=== PATIENT | female | born 2000 | race Caucasian/White ===

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

== ENCOUNTER → 2018-01-05 | Outpatient (CLI) | payer MEDICAID ==
[~2018-01-05] MED LIST changes: +CEPH-507 PO; +NYSTATIN VG
--- NOTE | 2018-01-05 19:42 | Diagnostic Imaging Report ---
PROCEDURE: US OB SINGLE FETUS <14 WKS. TECHNIQUE: Multiple real-time grayscale images were obtained over the gravid uterus in various projections. INDICATION: Uncertain dates. FINDINGS: The previous OB ultrasound exam of 12/20/2017 noted a single live intrauterine of approximately 10 weeks gestation. On this exam, the fetus is again visualized. The fetus is in variable presentation. heart motion was noted, and a rate of 155 BPM was recorded. The crown-rump length suggests the estimated gestational age is 11 weeks 2 days which is approximately 1 week shorter from the expected gestational age by the first exam. There are no obvious abnormalities identified. The amniotic fluid volume is within normal limits. At this time, the placenta seems to be developing anteriorly. The ovaries were not identified. IMPRESSION: 1. There is a single live intrauterine of approximately 12 weeks 2 days gestation by first exam. The EDC remains July 18, 2017. 2. There were no obvious abnormalities identified. If a more sensitive evaluation of the anatomy is desired, however, then a short-term (6-8 week) followup ultrasound exam should be obtained. Dictated by: Dictated on workstation # [id number]
== END ==
LOC: RAD 12:42
PROVIDERS: ATTEND Family Medicine
DX: Z34.00 Encounter for supervision of normal first pregnancy, unspecified trimester (principal); Z3A.12 12 weeks gestation of pregnancy
CPT/HCPCS: 76801

== ENCOUNTER 2018-07-13 14:59 | Inpatient (IN) | payer MEDICAID ==
[~2018-07-13] VITALS: Ht 175.3 cm; Wt 127.6 kg
[2018-07-13] VITALS (28 sets, daily range): BP systolic 127–170; BP diastolic 66–93
--- NOTE | 2018-07-13 15:04 | NUR ---
PATI BURNETTE admitted to room 3320-1, with an admitting diagnosis of gestational HTN and edema, on 07/13/[address] yony via private vehicle, accompanied by family .PATI BURNETTE introduced to surroundings, call light, bed controls, phone, TV, temperature control, lights, meal times, smoking policy, visitor policy, side rail policy, bathrooms and showers. Patient Rights given to patient in the handbook. PATI BURNETTE verbalizes understanding that [facility] is not responsible for the loss or damage to any personal effects or valuables that are kept in the patients posession during their hospitalization. The following Patient Care Plans were discussed with the patient: Discharge Planning, outpatient protocol, and pain management. PATI BURNETTE verbalizes understanding of Interdisciplinary Patient Education. Patient and/or family were informed about the Rapid Response Team and its purpose.
[2018-07-13] MEDS ORDERED: LACTATED RINGERS 1,000 ML IV SCH (15:37)
[2018-07-13] MEDS ORDERED: AMPICILLIN FOR IV USE 2,000 MG in WATER (STERILE) FOR INJECTION 14.8 ML IV SCH (15:37)
[2018-07-13] MEDS ORDERED: MISOPROSTOL 100 MCG (CYTOTEC) TAB PO NR (15:45)
[2018-07-13] MEDS ORDERED: TERBUTALINE INJ 1 MG/ML (BRETHINE) AMP SC PRN (15:45)
[2018-07-13] MEDS ORDERED: MINERAL OIL CONCENTRATE 99.9% 15 ML UDC TOP PRN (15:45)
[2018-07-13 16:21] LABS: BASOPHILS % (AUTO) 0 % (0-10); EOSINOPHILS # (AUTO) 0.1 10^3/uL (0.0-0.3); EOSINOPHILS % (AUTO) 1 % (0-10); HEMATOCRIT 35 % (35-52); HEMOGLOBIN 11.8 G/DL (11.5-16.0); LYMPHOCYTES # (AUTO) 1.6 X 10^3 (1.0-4.0); LYMPHOCYTES % (AUTO) 17 % (12-44); MEAN CORPUSCULAR HEMOGLOBIN 31 PG (25-34); MEAN CORPUSCULAR HGB CONC 34 G/DL (32-36); MEAN CORPUSCULAR VOLUME 90 FL (80-99); MEAN PLATELET VOLUME 13.7 FL (7.4-10.4); MONOCYTES # (AUTO) 0.7 X 10^3 (0.0-1.0); MONOCYTES % (AUTO) 7 % (0-12); NEUTROPHILS # (AUTO) 6.9 X 10^3 (1.8-7.8); NEUTROPHILS % (AUTO) 75 % (42-75); PLATELET COUNT 133 10^3/uL (130-400); RED CELL DISTRIBUTION WIDTH 13.5 % (10.0-14.5); WHITE BLOOD COUNT 9.3 10^3/uL (4.3-11.0)
[2018-07-13 16:39] LABS: ALANINE AMINOTRANSFERASE 9 U/L (0-55); ALBUMIN 3.5 GM/DL (3.2-4.5); ALKALINE PHOSPHATASE 186 U/L (40-136); BILIRUBIN,TOTAL 0.4 MG/DL (0.1-1.0); BUN/CREATININE RATIO 9; CALCIUM 9.5 MG/DL (8.5-10.1); CARBON DIOXIDE 21 MMOL/L (21-32); CHLORIDE 107 MMOL/L (98-107); GFR ESTIMATED > 60; GLUCOSE 66 MG/DL (70-105); POTASSIUM 3.9 MMOL/L (3.6-5.0); SODIUM 137 MMOL/L (135-145); URIC ACID 5.9 MG/DL (2.6-7.2)
--- NOTE | 2018-07-13 17:06 | NUR ---
DR MARIE NOTIFIED OF PATIENT CURRENT CERVICAL exam and fhr/contraction pattern. new orders received.
[2018-07-13] MEDS: D5 LR IV SOLUTION 1,000 ML IV SCH (17:12)
--- NOTE | 2018-07-13 18:20 | NUR ---
dr matthew notified of recent cervical exam. new orders received.
[2018-07-13] MEDS ORDERED: OXYTOCIN/NORMAL SALINE 500 ML IV SCH ×2 (18:34→18:36)
[2018-07-13] MEDS ORDERED: SUFENTA 0.6MCG/ML BUPIVA 0.125 100 ML ONE (19:21)
[2018-07-13] MEDS ORDERED: MISOPROSTOL 100 MCG (CYTOTEC) TAB PO SCH (19:45)
[2018-07-13] MEDS ORDERED: fentaNYL INJECTION 100 MCG/2 ML AMP ONE (19:51)
[2018-07-13] MEDS: EPIDURAL (SUFENTA 0.6MCG/ML BUPIVA 0.125%) 100 ML BAG EPI PRN (20:10)
[2018-07-13] MEDS ORDERED: LACTATED RINGERS 1,000 ML IV ONE ×2 (20:14)
[2018-07-13] MEDS ORDERED: BUPIVACAINE 0.25% 30 ML (SENSORCAINE) VIAL ONE (20:14)
[2018-07-13] MEDS ORDERED: LIDOCAINE PF 2% 5 ML (XYLOCAINE) VIAL ONE (20:14)
[2018-07-13] MEDS ORDERED: NALOXONE 0.4 MG/ML 1 ML (NARCAN) VIAL IV PRN (20:15)
[2018-07-13] MEDS ORDERED: ONDANSETRON 4 MG/2 ML (SDV) Z0FRAN IV PRN (20:15)
[2018-07-13] MEDS: AMPICILLIN FOR IV USE 1,000 MG in WATER (STERILE) FOR INJECTION 7.4 ML IV SCH (21:31)
[2018-07-13] MEDS ORDERED: CATHETER FLUSH 10 ML SYR IV SCH (22:00)
[2018-07-14] VITALS (51 sets, daily range): BP systolic 108–172; BP diastolic 61–120
[2018-07-14] MEDS: D5 LR IV SOLUTION 1,000 ML IV SCH ×2 (01:30→08:45)
[2018-07-14] MEDS: AMPICILLIN FOR IV USE 1,000 MG in WATER (STERILE) FOR INJECTION 7.4 ML IV SCH ×2 (01:52→06:06)
[2018-07-14] MEDS: EPIDURAL (SUFENTA 0.6MCG/ML BUPIVA 0.125%) 100 ML BAG EPI PRN (03:30)
--- NOTE | 2018-07-14 08:30 | History & Physical-OB ---
OB - Chief Complaint & HPI Date/Time Date of Admission: Date of Admission: July 13, 2018 at 14:59 Date seen by a Provider: July 14, 2018 Time Seen by a Provider: 08:24 Chief Complaint/History OB-Reason for Admission/Chief: Induction of Labor (Preeclampsia) Hx : 1 Expected Date of Delivery: Jul 18, 2018 Gestational Age in Weeks: 39 Gestational Age in Days: 3 Indication for induction: medical complication (Preeclampsia) History of Labs A+, Ab neg Rub Imm HIV/HepB/RPR NR Normal 1 hr GTT GBS Pos Allergies and Home Medications Allergies Coded Allergies: morphine (Unverified Allergy, Intermediate, HIVES, 12/04/16) PT RECEIVED 5MG MORPHINE FOR PAIN AND DEVELOPED HIVES ABOVE IV SITE. Patient Home Medication List Home Medication List Reviewed: Yes OB - History Hx of Present Care: Yes Ultrasounds: Normal mid trimester US Obstetrical Complications: Other (Preeclampsia in the 39th week) Medical Complications: None Obstetrical History Hx : 1 Delivery History Hx Blood Disorders: No Adverse Rxn to Tranfusion: No (N/A) Patient Past Medical History none Social History/Family History HIV/AIDS: No Recent Infectious Disease Expo: No Sexually Transmitted Disease: No Alcohol Use: Denies Use Recreational Drug Use: No Immunizations Tetanus Booster (TDap): Less than 5yrs (06/08/18) Rubella: immune RPR/VDRL: Negative GBS Status: Positive HBsAG: Negative OB - Admission Exam Physical Exam Vitals: Vital Signs 07/14/18 07/14/18 07/14/18 03:15 06:45 07:00 Temp 98.1 Pulse 73 Resp 18 B/P (MAP) 136/78 (97) Pulse Ox 95 O2 Delivery Room Air HEENT: NCAT Heart: Rhythm Normal Lungs: Clear Abdomen: Gravid Extremities: Normal Reflexes: Normal Cervical Dilatation: 7cm Effacement: 100% Station: 0 Membranes: Ruptured Amniotic Fluid: Clear Heart Rate: 130's Accelerations: Accelerations Present Decelerations: No Decelerations Contractions on Admission: < 5 Minutes Apart Intensity: Moderate Mendez Scoring Tool (Modified) Dilation (cm): 3-4cm (2) Effacement (%): 51-79% (2) Descent/Station: -1,0 (2) Cervix Consistency: Soft (2) Cervix Position: Middle/Mid-Position (1) Add 1 point for: Pre-eclampsia (1) Mendez Score: 10 Labs Laboratory Tests Test 07/13/18 16:00 07/13/18 16:15 Range/Units White Blood Count 9.3 4.3-11.0 10^3/uL Red Blood Count 3.85 L 4.35-5.85 10^6/uL Hemoglobin 11.8 11.5-16.0 G/DL Hematocrit 35 35-52 % Mean Corpuscular Volume 90 80-99 FL Mean Corpuscular Hemoglobin 31 25-34 PG Mean Corpuscular Hemoglobin Concent 34 32-36 G/DL Red Cell Distribution Width 13.5 10.0-14.5 % Platelet Count 133 130-400 10^3/uL Mean Platelet Volume 13.7 H 7.4-10.4 FL Neutrophils (%) (Auto) 75 42-75 % Lymphocytes (%) (Auto) 17 12-44 % Monocytes (%) (Auto) 7 0-12 % Eosinophils (%) (Auto) 1 0-10 % Basophils (%) (Auto) 0 0-10 % Neutrophils # (Auto) 6.9 1.8-7.8 X 10^3 Lymphocytes # (Auto) 1.6 1.0-4.0 X 10^3 Monocytes # (Auto) 0.7 0.0-1.0 X 10^3 Eosinophils # (Auto) 0.1 0.0-0.3 10^3/uL Basophils # (Auto) 0.0 0.0-0.1 10^3/uL Sodium Level 137 135-145 MMOL/L Potassium Level 3.9 3.6-5.0 MMOL/L Chloride Level 107 98-107 MMOL/L Carbon Dioxide Level 21 21-32 MMOL/L Anion Gap 9 5-14 MMOL/L Blood Urea Nitrogen 6 L 7-18 MG/DL Creatinine 0.70 0.60-1.30 MG/DL Estimat Glomerular Filtration Rate > 60 BUN/Creatinine Ratio 9 Glucose Level 66 L 70-105 MG/DL Uric Acid 5.9 2.6-7.2 MG/DL Calcium Level 9.5 8.5-10.1 MG/DL Corrected Calcium 9.9 8.5-10.1 MG/DL Total Bilirubin 0.4 0.1-1.0 MG/DL Aspartate Amino Transf (AST/SGOT) 19 5-34 U/L Alanine Aminotransferase (ALT/SGPT) 9 0-55 U/L Alkaline Phosphatase 186 H 40-136 U/L Lactate Dehydrogenase 186 125-220 U/L Total Protein 7.0 6.4-8.2 GM/DL Albumin 3.5 3.2-4.5 GM/DL Urine Protein 36 H 6-12 MG/DL Urine Creatinine 139 H 30-125 MG/DL Urine Protein/Creatinine Ratio 0.26 OB - Assessment/Plan/Diagnosis Assessment Assessment: active labor, induction of labor, other (Pre eclampsia) Admission Dx Pre eclampsia w/o severe features 39 week gestation third trimester Admission Status: Inpatient Order (span 2 midnights) Reason for Inpatient Admission: Labor Plan Other Plan 18 yo G1 @ 39.2 wga sent for IOL for elevated blood pressure in clinic Plan - GBS Pos, will treat with ampicillin, start pit after 2nd dose of antibiotics - Pitocin protocol - AROM 0815 clear Copy Copies To 1: KWAME MARIE MD, HOLLY R MD July 14, 2018 08:30
--- NOTE | 2018-07-14 09:48 | NUR ---
DR MARIE NOTIFIED OF MOST CURRENT CERVICAL EXAM, FHR/CONTRACTION PATTERN.
[2018-07-14] MEDS ORDERED: MISOPROSTOL 200 MCG (CYTOTEC) TABLET ONE (11:07)
[2018-07-14] MEDS: OXYTOCIN/NORMAL SALINE 500 ML IV SCH ×2 (11:08→12:05)
[2018-07-14] MEDS ORDERED: CARBOPROST (HEMABATE) 250 MCG/ML AMP IM ONE (11:11)
--- NOTE | 2018-07-14 11:50 | NUR ---
sales operations consultant at bedside assisting with .
--- NOTE | 2018-07-14 11:58 | OB Labor & Delivery Record ---
Vag Delivery Note Vag Delivery Note Date of Delivery: 07/14/18 Preoperative Diagnosis: Kalina Rodriguez is a (18 /Para 1 / ,Gestational Age (wks)39.3 with here for IOL for gestational HTN Postoperative Diagnosis: Same Surgeon: KWAME MARIE Forensic Dna Analyst: None Anesthesia: Epidural Delivery Type: @ 1104 Findings: Viable male , apgars 8/9, weight Lacerations: Left vaginal and labile laceration Intact placenta with 3 vessel cord. No nuchal cord, body cord or shoulder dystocia Cytotec 800 mcg placed for hemorrhage prophylaxis Estimated Blood Loss: 500 ml Complications: Post Hemorrhage Condition: Stable Description of Procedure: The patient is a 18 year old female who presented for IOL for gestational HTN. She was admitted and informed consent was obtained. Her labor course was remarkable for Post Hemorrhage. She progressed to complete dilatation and began to push. She was then set up for delivery. The infant's head was delivered atraumatically in the PROMISE position. The shoulders and remainder of the 's body were then delivered without difficulty. Upon delivery, the head was held below the level of the perineum and the mouth and nares were bulb suctioned. The cord was doubly clamped after 2 min delay and cut by grandmother and the was placed on maternal abdomen and attended to by pediatric staff. An intact placenta with 3- vessel cord delivered via Cande and there was found to be moderate bleeding. Manual fundal massage perform. OK Cytotec was given for soft uterus. Patient continued to have steady bleeding. Manual massage was continued and Methergine was given. Vital signs remained stable. IV oxytocin was also started at the delivery of the placenta. Uterus was examined and no remaining placenta was found. Bleeding improved after cytotec and Methergine.Examination of the vagina and perineum revealed a left vaginal and left labile laceration repaired in the usual fashion with 3-0 vicryl suture. Following the repair, sponge, instrument and needle counts were correct. Mom and baby were both in stable condition in the labor suite. Vitals - Labs Vital Signs - I&O Vital Signs Date Time Temp Pulse Resp B/P (MAP) Pulse Ox O2 Delivery O2 Flow Rate FiO2 07/14/18 09:00 74 20 155/100 (118) 100 Room Air 07/14/18 08:30 73 20 149/95 (113) 100 Room Air 07/14/18 08:15 70 20 140/86 (104) 100 Room Air 07/14/18 08:00 67 18 144/96 (112) 94 Room Air 07/14/18 07:45 70 18 145/88 (107) 96 Room Air 07/14/18 07:15 97.6 80 18 148/86 (106) 97 Room Air 07/14/18 07:00 73 18 95 Room Air 07/14/18 06:45 59 18 136/78 (97) 95 Room Air 07/14/18 06:30 18 96 Room Air 07/14/18 06:15 72 18 152/88 (109) 98 Room Air 07/14/18 06:00 67 18 131/71 (91) 96 Room Air 07/14/18 05:45 68 18 124/73 (90) 86 Room Air 07/14/18 05:30 72 18 132/77 (95) 96 Room Air 07/14/18 05:15 70 18 126/81 (96) 96 Room Air 07/14/18 05:00 69 18 138/88 (105) 97 Room Air 07/14/18 04:45 73 18 98 Room Air 07/14/18 04:30 72 18 132/74 (93) 97 Room Air 07/14/18 04:15 65 18 138/73 (94) 97 Room Air 07/14/18 04:00 66 18 139/67 (91) 97 Room Air 07/14/18 03:45 65 18 131/68 (89) 97 Room Air 07/14/18 03:30 65 18 134/73 (93) 97 Room Air 07/14/18 03:15 98.1 75 18 98 Room Air 07/14/18 03:00 73 18 130/74 (92) 96 Room Air 07/14/18 02:45 64 18 97 Room Air 07/14/18 02:30 62 18 129/71 (90) 93 Room Air 07/14/18 02:15 73 18 123/71 (88) 96 Room Air 07/14/18 02:00 65 18 96 Room Air 07/14/18 01:45 65 18 128/71 (90) 97 Room Air 07/14/18 01:30 65 18 128/71 (90) 97 Room Air 07/14/18 01:15 64 18 128/71 (90) 94 Room Air 07/14/18 01:00 68 18 135/74 (94) 99 Room Air 07/14/18 00:45 64 18 130/75 (93) 98 Room Air 07/14/18 00:30 69 18 137/73 (94) 98 Room Air 07/14/18 00:15 70 18 131/70 (90) 97 Room Air 07/14/18 00:00 74 18 97 Room Air 07/13/18 23:45 67 18 132/74 (93) 96 Room Air 07/13/18 23:30 67 18 98 Room Air 07/13/18 23:15 74 18 137/78 (97) 98 Room Air 07/13/18 23:00 98.6 66 18 140/80 (100) 99 Room Air 07/13/18 22:45 68 18 134/79 (97) 98 Room Air 07/13/18 22:30 64 18 136/78 (97) 98 Room Air 07/13/18 22:15 85 18 139/80 (99) 97 Room Air 07/13/18 22:00 75 18 136/79 (98) 97 Room Air 07/13/18 21:45 75 18 134/83 (100) 98 Room Air 07/13/18 21:30 73 18 133/81 (98) 99 Room Air 07/13/18 21:15 65 18 140/79 (99) 100 Room Air 07/13/18 21:00 69 18 141/76 (97) 100 Room Air 07/13/18 20:45 70 18 143/81 (101) 100 Room Air 07/13/18 20:40 70 20 154/82 (106) 100 Room Air 07/13/18 20:35 73 20 157/85 (109) 100 Room Air 07/13/18 20:30 67 18 148/75 (99) Room Air 07/13/18 20:28 80 20 170/90 (116) 99 Room Air 07/13/18 20:24 67 20 153/72 (99) 100 Room Air 07/13/18 20:21 77 20 159/88 (111) 99 Room Air 07/13/18 20:19 71 20 147/87 (107) 99 Room Air 07/13/18 20:15 80 18 151/77 (101) Room Air 07/13/18 20:12 68 20 145/78 (100) 98 Room Air 07/13/18 20:09 72 20 147/75 (99) 98 Room Air 07/13/18 20:06 78 20 161/92 (115) 98 Room Air 07/13/18 20:03 76 20 161/93 (115) 98 Room Air 07/13/18 20:00 98.2 167/87 (113) 07/13/18 18:35 97.7 67 20 136/83 (100) Room Air 07/13/18 16:10 77 20 127/66 (86) Room Air 07/13/18 15:15 98.4 90 20 131/82 (98) Room Air I & O 07/14/18 07:00 Intake Total 1000 ml Balance 1000 ml Labs Laboratory Tests 07/13/18 16:00: White Blood Count 9.3, Red Blood Count 3.85L, Hemoglobin 11.8, Hematocrit 35, Mean Corpuscular Volume 90, Mean Corpuscular Hemoglobin 31, Mean Corpuscular Hemoglobin Concent 34, Red Cell Distribution Width 13.5, Platelet Count 133, Mean Platelet Volume 13.7H, Neutrophils (%) (Auto) 75, Lymphocytes (%) (Auto) 17, Monocytes (%) (Auto) 7, Eosinophils (%) (Auto) 1, Basophils (%) (Auto) 0, Neutrophils # (Auto) 6.9, Lymphocytes # (Auto) 1.6, Monocytes # (Auto) 0.7, Eosinophils # (Auto) 0.1, Basophils # (Auto) 0.0, Sodium Level 137, Potassium Level 3.9, Chloride Level 107, Carbon Dioxide Level 21, Anion Gap 9, Blood Urea Nitrogen 6L, Creatinine 0.70, Estimat Glomerular Filtration Rate > 60, BUN/Creatinine Ratio 9, Glucose Level 66L, Uric Acid 5.9, Calcium Level 9.5, Corrected Calcium 9.9, Total Bilirubin 0.4, Aspartate Amino Transf (AST/SGOT) 19 , Alanine Aminotransferase (ALT/SGPT) 9, Alkaline Phosphatase 186H, Lactate Dehydrogenase 186, Total Protein 7.0, Albumin 3.5 07/13/18 16:15: Urine Protein 36H, Urine Creatinine 139H, Urine Protein/Creatinine Ratio 0.26 KWAME MARIE MD July 14, 2018 11:58
[2018-07-14] MEDS ORDERED: BENZOCAINE/MENTHOL (DERMOPLAST) 56 ML CAN TP PRN (12:00)
[2018-07-14] MEDS ORDERED: MEASLES,MUMPS,RUBELLA 1 EA INJ SQ ONE (12:00)
[2018-07-14] MEDS ORDERED: TETANUS,DIPTH,PERTUSS P/F (BOOSTRIX) 0.5 ML VIAL IM ONE (12:00)
[2018-07-14] MEDS ORDERED: WITCH HAZEL(TUCKS) 40 EA JAR TOP PRN (12:00)
[2018-07-14] MEDS ORDERED: DIBUCAINE (NUPERCAINAL) 1% OINT 30 GM TOP PRN (12:00)
[2018-07-14 12:04] LABS: HEMOGLOBIN 10.9 G/DL (11.5-16.0)
--- NOTE | 2018-07-14 12:05 | NUR ---
2nd bag of pitocin infused. 3rd bag hung see eMAR. denies need. family at bedside. actively .
[2018-07-14] MEDS: KETOROLAC 30 MG/ML VIAL IVP PRN ×2 (12:40→20:49)
[2018-07-14] MEDS: IBUPROFEN 600 MG (MOTRIN) TAB PO SCH (12:40)
--- NOTE | 2018-07-14 12:40 | NUR ---
TO BEDSIDE. SITTING IN SEMIFOWLER WITH INFANT AT BREAST ACTIVELY ROOTING. REPORTS URGE TO HAVE A BM OR PRESSURE IN HER BOTTOM. FUNDAL MASSAGE BY THIS RN. MODERATE TO HEAVY FLOW NOTED. NO CLOTS WITH MASSAGE. PATIENT THRASHING , SHAKING, AND CRYING WITH FUNDAL MASSAGE AND ASSESSMENT OF PERINEUM. MODERATE FLOW NOTED. VITALS TAKEN. PERINEUM ASSESSED BY THIS RN. PATIENT UNABLE TO TOLERATE PAIN WELL WITH ASSESSMENT. LEFT VAGINAL WALL DARK PURPLE GREATER EDEMA NOTED ON LEFT SIDE OF VAGINA..
--- NOTE | 2018-07-14 12:45 | NUR ---
DR MARIE NOTIFIED OF PATIENT S/S OF NIGHT WAREHOUSE MANAGER, RECENT VITALS, PAIN LEVEL. NEW ORDERS RECEIVED AT THIS TIME.
--- NOTE | 2018-07-14 13:05 | NUR ---
Rohini Melgoza Rn, minal atwood rn. to bedside. assessed perineum, 4cm area located at left repair area. firm to touch. light to moderate flow noted. pitocin continuing to infuse.
[2018-07-14] MEDS ORDERED: HYDROcodone/APAP 5 MG/325 MG (LORTAB) TAB PO PRN (13:15)
--- NOTE | 2018-07-14 13:20 | NUR ---
assisted up to bathroom with standby assistance of RN. reviewed pericare and updated poc with patient and family. verbalized understanding. toradol given as ordered see eMAR.
--- NOTE | 2018-07-14 13:40 | NUR ---
reports spontaneous void and BM. demonstrated appropriate pericare. new pad and underwear on. dermoplast applied by patient to perineum along with ice pack. transferred to pp room 312 via ambulation . slow steady gait, denies dizziness or lightheadedness, feels feet are tight with edema. family at side. no s/s of distress noted. pitocin infusion continues as ordered.
[2018-07-14] MEDS ORDERED: CATHETER FLUSH 10 ML SYR IV SCH (14:00)
[2018-07-14 16:23] LABS: BASOPHILS % (AUTO) 0 % (0-10); EOSINOPHILS % (AUTO) 0 % (0-10); HEMATOCRIT 29 % (35-52); LYMPHOCYTES # (AUTO) 1.1 X 10^3 (1.0-4.0); LYMPHOCYTES % (AUTO) 8 % (12-44); MEAN CORPUSCULAR HEMOGLOBIN 31 PG (25-34); MEAN CORPUSCULAR HGB CONC 34 G/DL (32-36); MEAN CORPUSCULAR VOLUME 91 FL (80-99); MEAN PLATELET VOLUME 13.5 FL (7.4-10.4); MONOCYTES # (AUTO) 0.9 X 10^3 (0.0-1.0); MONOCYTES % (AUTO) 7 % (0-12); NEUTROPHILS # (AUTO) 11.5 X 10^3 (1.8-7.8); NEUTROPHILS % (AUTO) 85 % (42-75); PLATELET COUNT 112 10^3/uL (130-400); RED CELL DISTRIBUTION WIDTH 13.3 % (10.0-14.5); WHITE BLOOD COUNT 13.6 10^3/uL (4.3-11.0)
[2018-07-14 16:58] LABS: BAND NEUTROPHILS 2 %; EOSINOPHILS % (MANUAL) 1 %; LYMPHOCYTES % (MANUAL) 5 %; MONOCYTES % (MANUAL) 4 %; NEUTROPHILS % (MANUAL) 88 %
[2018-07-14] MEDS: DOCUSATE SODIUM 100 MG (COLACE) CAP PO SCH (20:49)
[2018-07-15] MEDS: IBUPROFEN 600 MG (MOTRIN) TAB PO SCH ×4 (02:19→17:41)
[2018-07-15 04:14] VITALS: BP 141/89
[2018-07-15 06:08] LABS: BASOPHILS % (AUTO) 0 % (0-10); EOSINOPHILS # (AUTO) 0.1 10^3/uL (0.0-0.3); EOSINOPHILS % (AUTO) 1 % (0-10); HEMATOCRIT 27 % (35-52); HEMOGLOBIN 9.3 G/DL (11.5-16.0); LYMPHOCYTES # (AUTO) 1.2 X 10^3 (1.0-4.0); LYMPHOCYTES % (AUTO) 12 % (12-44); MEAN CORPUSCULAR HEMOGLOBIN 31 PG (25-34); MEAN CORPUSCULAR HGB CONC 34 G/DL (32-36); MEAN CORPUSCULAR VOLUME 91 FL (80-99); MEAN PLATELET VOLUME 13.1 FL (7.4-10.4); MONOCYTES # (AUTO) 0.6 X 10^3 (0.0-1.0); MONOCYTES % (AUTO) 6 % (0-12); NEUTROPHILS # (AUTO) 8.2 X 10^3 (1.8-7.8); NEUTROPHILS % (AUTO) 81 % (42-75); PLATELET COUNT 112 10^3/uL (130-400); RED CELL DISTRIBUTION WIDTH 13.3 % (10.0-14.5); WHITE BLOOD COUNT 10.1 10^3/uL (4.3-11.0)
--- NOTE | 2018-07-15 07:45 | NUR ---
PT'S MOM TO DESK REPORTED BY ANGELINA HIGH RN. REQUESTED FORMULA.
[2018-07-15 08:45] VITALS: BP 131/71
--- NOTE | 2018-07-15 08:45 | NUR ---
A.M. ASSESSMENT COMPLETED. VSS. PT CRYING. PT'S FAMILY UPSET ABOUT CARE AND PT BEING TIRED AND UNABLE TO REST REPORTED TO NURSERY RN AND THEN TO THIS RN. REASSURANCE GIVEN. INFANT TAKING FORMULA AND SLEEPING AT THIS TIME. WILL SEND TO THE ROOM TO VISIT WITH PT.
[2018-07-15] MEDS: DOCUSATE SODIUM 100 MG (COLACE) CAP PO SCH ×2 (08:50→20:51)
[2018-07-15] MEDS: FERROUS SULF 325 MG (IRON) TAB PO SCH (08:50)
--- NOTE | 2018-07-15 09:30 | NUR ---
INFANT TO NURSERY. PT WANTING TO GO DOWNSTAIRS AND THEN TO SLEEP. SEE NURSERY NOTES FOR DETAILS.
[2018-07-15] MEDS ORDERED: FERR325T18 PO (12:30)
[2018-07-15] MEDS ORDERED: IBUP-844 PO (12:30)
--- NOTE | 2018-07-15 12:33 | Discharge Instructions ---
Discharge Inst-Women's Serv Depart Medications New, Converted or Re-Newed RX: Transmitted to Pharmacy New Medications: Ferrous Sulfate (Ferrous Sulfate) 325 Mg Tablet 325 MG PO DAILY@0800, #30 TAB 0 Refills Ibuprofen (Ibu) 600 Mg Tablet 600 MG PO Q6HR PRN for PAIN-MODERATE, #60 TAB 0 Refills Follow Up/Instructions Goal/Follow Up: Follow up at [facility] for a nurse visit for blood pressure check within a few days. Follow up with Dr. Victor in 6 weeks for visit. Activity Activity: Activity as Tolerated (avoid strenuous activity x 6 weeks) Nothing Inside Vagina: No Douching, No Metaline, No Tampons Diet Discharge Diet: Regular Diet Symptoms to Report to : Swelling Increased, Bleeding Excessive, Fever Over 101 Degrees F, Pain/Pressure in Chest, Vaginal Bleeding Increase, Cramps in Feet or Legs, Vaginal Discharge Foul, Shortness of Breath For Any Problems or Questions: Contact Your Physician HUGH COLLAZO MD July 15, 2018 12:33
--- NOTE | 2018-07-15 12:33 | Discharge Summary ---
Diagnosis/Chief Complaint Date of Admission July 13, 2018 at 14:59 Date of Discharge July 15, 2018 Admission Diagnosis Admission Diagnosis Gestational hypertension IOL Discharge Diagnosis Gestational hypertension- BP occasionally still around 140, labs negative for preeclampsia on admit. Requesting d/c on PPD #1. Follow up for BP check within a few days. s/p spontaneous vaginal delivery- routine care Mild hemorrhage- resolved, bleeding minimal on day of d/c Asymptomatic anemia- iron sulfate daily Chief Complaint/HPI Chief Complaint/HPI 18 yo female sent for induction when BP high at routine visit. Discharge Summary-Simple/Stand Procedures Spontaneous vaginal delivery with vaginal laceration repair Discharge Physical Examination Allergies: Coded Allergies: morphine (Unverified Allergy, Intermediate, HIVES, 12/04/16) PT RECEIVED 5MG MORPHINE FOR PAIN AND DEVELOPED HIVES ABOVE IV SITE. Vitals & I&Os Vital Sign - Last 12Hours Date Time Temp Pulse Resp B/P (MAP) Pulse Ox O2 Delivery O2 Flow Rate FiO2 07/15/18 04:14 98.8 83 18 141/89 (106) 99 Room Air General Appearance: Alert, No Acute Distress Respiratory: Clear to Auscultation, Normal Air Movement Cardiovascular: Regular Rate, No Murmurs Neuro: Normal Speech Psych/Mental Status: Mental Status NL Hospital Course See final discharge diagnosis. Labs Laboratory Tests Test 07/13/18 16:00 07/13/18 16:15 07/14/18 11:55 07/14/18 16:05 Range/Units White Blood Count 9.3 13.6 H 4.3-11.0 10^3/uL Red Blood Count 3.85 L 3.25 L 4.35-5.85 10^6/uL Hemoglobin 11.8 10.9 L 10.0 L 11.5-16.0 G/DL Hematocrit 35 33 L 29 L 35-52 % Mean Corpuscular Volume 90 91 80-99 FL Mean Corpuscular Hemoglobin 31 31 25-34 PG Mean Corpuscular Hemoglobin Concent 34 34 32-36 G/DL Red Cell Distribution Width 13.5 13.3 10.0-14.5 % Platelet Count 133 112 L 130-400 10^3/uL Mean Platelet Volume 13.7 H 13.5 H 7.4-10.4 FL Neutrophils (%) (Auto) 75 85 H 42-75 % Lymphocytes (%) (Auto) 17 8 L 12-44 % Monocytes (%) (Auto) 7 7 0-12 % Eosinophils (%) (Auto) 1 0 0-10 % Basophils (%) (Auto) 0 0 0-10 % Neutrophils # (Auto) 6.9 11.5 H 1.8-7.8 X 10^3 Lymphocytes # (Auto) 1.6 1.1 1.0-4.0 X 10^3 Monocytes # (Auto) 0.7 0.9 0.0-1.0 X 10^3 Eosinophils # (Auto) 0.1 0.0 0.0-0.3 10^3/uL Basophils # (Auto) 0.0 0.0 0.0-0.1 10^3/uL Sodium Level 137 135-145 MMOL/L Potassium Level 3.9 3.6-5.0 MMOL/L Chloride Level 107 98-107 MMOL/L Carbon Dioxide Level 21 21-32 MMOL/L Anion Gap 9 5-14 MMOL/L Blood Urea Nitrogen 6 L 7-18 MG/DL Creatinine 0.70 0.60-1.30 MG/DL Estimat Glomerular Filtration Rate > 60 BUN/Creatinine Ratio 9 Glucose Level 66 L 70-105 MG/DL Uric Acid 5.9 2.6-7.2 MG/DL Calcium Level 9.5 8.5-10.1 MG/DL Corrected Calcium 9.9 8.5-10.1 MG/DL Total Bilirubin 0.4 0.1-1.0 MG/DL Aspartate Amino Transf (AST/SGOT) 19 5-34 U/L Alanine Aminotransferase (ALT/SGPT) 9 0-55 U/L Alkaline Phosphatase 186 H 40-136 U/L Lactate Dehydrogenase 186 125-220 U/L Total Protein 7.0 6.4-8.2 GM/DL Albumin 3.5 3.2-4.5 GM/DL Urine Protein 36 H 6-12 MG/DL Urine Creatinine 139 H 30-125 MG/DL Urine Protein/Creatinine Ratio 0.26 Neutrophils % (Manual) 88 % Lymphocytes % (Manual) 5 % Monocytes % (Manual) 4 % Eosinophils % (Manual) 1 % Band Neutrophils 2 % Test 07/15/18 05:45 Range/Units White Blood Count 10.1 4.3-11.0 10^3/uL Red Blood Count 3.01 L 4.35-5.85 10^6/uL Hemoglobin 9.3 L 11.5-16.0 G/DL Hematocrit 27 L 35-52 % Mean Corpuscular Volume 91 80-99 FL Mean Corpuscular Hemoglobin 31 25-34 PG Mean Corpuscular Hemoglobin Concent 34 32-36 G/DL Red Cell Distribution Width 13.3 10.0-14.5 % Platelet Count 112 L 130-400 10^3/uL Mean Platelet Volume 13.1 H 7.4-10.4 FL Neutrophils (%) (Auto) 81 H 42-75 % Lymphocytes (%) (Auto) 12 12-44 % Monocytes (%) (Auto) 6 0-12 % Eosinophils (%) (Auto) 1 0-10 % Basophils (%) (Auto) 0 0-10 % Neutrophils # (Auto) 8.2 H 1.8-7.8 X 10^3 Lymphocytes # (Auto) 1.2 1.0-4.0 X 10^3 Monocytes # (Auto) 0.6 0.0-1.0 X 10^3 Eosinophils # (Auto) 0.1 0.0-0.3 10^3/uL Basophils # (Auto) 0.0 0.0-0.1 10^3/uL Discharge Instructions to patient/family Please see electronic discharge instructions given to patient. Discharge Medications Reviewed and agree with Discharge Medication list on patient's Discharge Instruction sheet Clinical Quality Measures DVT/VTE Risk/Contraindication: Risk Factor Score Per Nursin RFS Level Per Nursing on Admit: 4+=Very High Copy Copies To 1: KWAME MARIE MD, BETHANY N MD July 15, 2018 12:33
--- NOTE | 2018-07-15 13:00 | NUR ---
SLEEPING SOUNDLY WITH MOTHER IN THE BED ASLEEP WELL. INFANT IN NURSERY.
--- NOTE | 2018-07-15 13:23 | Anesthesia-Regional Post-Op ---
Regional Patient Condition Mental Status: Alert, Oriented x3 Circulation: Same as Pre-Op Headache: Absent Sensation: Full Recovery Motor Block: Absent Post Op Complications Complications None Follow Up Care/Instructions Patient Instructions None needed. Anesthesia/Patient Condition Patient is doing well, no complaints, stable vital signs, no apparent adverse anesthesia problems. No complications reported per nursing. YAJAIRA MCCLURE CRNA July 15, 2018 13:23
[2018-07-15 13:30] VITALS: BP 131/75
--- NOTE | 2018-07-15 15:00 | NUR ---
INFANT IN THE ROOM FOR A LITTLE WHILE AND NOW TO NURSERY FOR CIRCUMCISION.
[2018-07-15 17:30] VITALS: BP 127/78
--- NOTE | 2018-07-15 17:41 | NUR ---
MOTRIN GIVEN LATE R/T PT BEING DOWNSTAIRS OR ASLEEP. LORTAB 1 TAB P.O. FOR C/O SORE PERINEAL STITCHES. INFANT IN NURSERY.
--- NOTE | 2018-07-15 18:30 | NUR ---
INFANT IN NURSERY. HAS SPENT VERY LITTLE TIME IN THE MOM'S ROOM TODAY. DISCUSSED NEED TO PUMP AND FEED WHATEVER SHE PUMPS TO INFANT R/T INFANT HAVING SOME NICOTINE WITHDRAWAL SYMPTOMS PER DR. ZIMMER WHO DID THE CIRCUMCISION.
[2018-07-16] VITALS: BP 141/84
--- NOTE | 2018-07-16 | NUR ---
Pt. refuses motrin at this time. States that she just wants to go back to sleep.
[2018-07-16] MEDS: IBUPROFEN 600 MG (MOTRIN) TAB PO SCH ×3 (02:21→08:35)
[2018-07-16 04:42] VITALS: BP 134/84
[2018-07-16 08:35] VITALS: BP 152/85
[2018-07-16] MEDS: FERROUS SULF 325 MG (IRON) TAB PO SCH (08:35)
[2018-07-16] MEDS: DOCUSATE SODIUM 100 MG (COLACE) CAP PO SCH (08:35)
--- NOTE | 2018-07-16 08:35 | NUR ---
THIS RN AT BEDSIDE. PHYSICAL ASSESSMENT DONE, VSS, QUESTIONS ANSWERED. PT DENIES NEEDS. CALL LIGHT WITHIN REACH.
--- NOTE | 2018-07-16 10:00 | NUR ---
THIS RN GIVES PT REPORT TO SUMIT SARKAR AT THIS TIME.
--- NOTE | 2018-07-16 10:01 | NUR ---
CM/SS responded to SS consult. Patient reports that she has all things she needs for baby ie) crib, car seat, diapers, wipes, pack n play. She reports that her mother and grandmother are very helpful and supportive. Patient discussed that she has [facility] appointment for Thursday and will talk to them about other programs they offer like Parents As Teacher / Healthy Families. She did not want referral sent to them at this time. When initially entered patient room great grandma and baby were only in there, Kalina was downstairs. Baby was asleep in open air crib. She felt she had no needs at discharge.
[2018-07-16 12:21] VITALS: BP 130/85
--- NOTE | 2018-07-16 14:20 | NUR ---
Verbal and handouts of discharge/home instructions given to pt. pt verbalizes understanding and verifies by signing signature page.
--- NOTE | 2018-07-16 14:30 | NUR ---
PT discharge. Will remain in room 312 as border mom. Baby not discharged for elevated bili. Pt received Rx and will be responsible for own medication. no concerns voiced via pt. No s/s of distress.
== END 2018-07-16 14:30 | disposition home or self-care (01) | DRG 806 ==
LOC: LDRP 14:59
PROVIDERS: ADMIT Family Medicine; ATTEND Family Medicine
PROC: 10E0XZZ Delivery of Products of Conception, External Approach (ICD-10-PCS; principal; 2018-07-14)
PROC: 0HQ9XZZ Repair Perineum Skin, External Approach (ICD-10-PCS; 2018-07-14)
DX: O13.3 Gestational [pregnancy-induced] hypertension without significant proteinuria, third trimester (principal); O72.1 Other immediate postpartum hemorrhage; O90.81 Anemia of the puerperium; D62 Acute posthemorrhagic anemia; O70.0 First degree perineal laceration during delivery; O99.820 Streptococcus B carrier state complicating pregnancy; Z3A.39 39 weeks gestation of pregnancy; Z37.0 Single live birth
CPT/HCPCS: 36415; 80053; 82570; 83615; 84156; 84550; 85007; 85014; 85018; 85025; 85027; 86850; 86900; 86901

== ENCOUNTER 2019-02-21 22:59 | Emergency (ER) | payer MEDICAID ==
[~2019-02-21] VITALS: Ht 180.3 cm; Wt 108.9 kg
[~2019-02-21 22:59] MED LIST changes: +FERR325T18 PO; +IBUP-844 PO
--- NOTE | 2019-02-21 23:14 | ED Integumentary General ---
General Chief Complaint: Foreign Body Stated Complaint: STATES WORM IN [place]TON Nursing Triage Note: FOREIGN BODY COMING OUT OF HER BELLY BUTTON. Source: patient, family Exam Limitations: no limitations History of Present Illness Date Seen by Provider: Feb 21, 2019 Time Seen by Provider: 23:00 Initial Comments Patient presents ER by private conveyance with chief complaint that tonight she noticed a small black threadlike worms coming out of her umbilicus. She's had gallbladder surgery as well as umbilical hernia repair done by Dr. Willis. She's had pain and irritation ever since then. She had some redness and irritation in her umbilicus and was put on antifungal pill by her primary care doctor, Dr. Victor. She just noticed the warm-like object today. No fevers chills abdominal pain or nausea. Allergies and Home Medications Allergies Coded Allergies: morphine (Unverified Allergy, Intermediate, HIVES, 12/04/16) PT RECEIVED 5MG MORPHINE FOR PAIN AND DEVELOPED HIVES ABOVE IV SITE. Home Medications Ferrous Sulfate 325 Mg Tablet, 325 MG PO DAILY@0800 Prescribed by: HUGH COLLAZO on 07/15/18 1230 Ibuprofen 600 Mg Tablet, 600 MG PO Q6HR PRN for PAIN-MODERATE Prescribed by: HUGH COLLAZO on 07/15/18 1230 Patient Home Medication List Home Medication List Reviewed: Yes Review of Systems Review of Systems Constitutional: No chills, No diaphoresis EENTM: No ear discharge, No hearing loss, No ear pain Respiratory: No cough, No short of breath Cardiovascular: No chest pain, No edema All Other Systems Reviewed Negative Unless Noted: Yes Past Mgzyhsf-[id number]-Ofjffr Hx Patient Social History Alcohol Use: Occasionally Uses Recreational Drug Use: No Smoking Status: Current Everyday Smoker Type Used: Cigarettes Recent Foreign Travel: No Contact w/Someone Who Travel: No Recent Hopitalizations: No Physical Abuse: No Sexual Abuse: No Mistreated: No Fear: No Immunizations Up To Date Tetanus Booster (TDap): Less than 5yrs PED Vaccines UTD: Yes Seasonal Allergies Seasonal Allergies: No Past Medical History Surgeries: Yes Abdominal, Gallbladder Respiratory: No Cardiac: No ( ) Neurological: No Reproductive Disorders: No Female Reproductive Disorders: Denies Sexually Transmitted Disease: No HIV/AIDS: No Genitourinary: No Gastrointestinal: No Musculoskeletal: No Endocrine: No HEENT: No Loss of Vision: Denies Hearing Impairment: Denies Cancer: No Psychosocial: No Integumentary: Yes (KELOID RT EAR, NASAL SWAB MRSA+) Eczema Blood Disorders: No Adverse Reaction/Blood Tranf: No (N/A) Family Medical History Hypertension 19 MOTHER Physical Exam Vital Signs Capillary Refill : General Appearance: WD/WN, no apparent distress HEENT: PERRL/EOMI, TMs normal, pharynx normal Neck: full range of motion, supple, normal inspection Cardiovascular: normal peripheral pulses, regular rate, rhythm Respiratory: no respiratory distress, no accessory muscle use Gastrointestinal: normal bowel sounds, non tender, soft Skin: normal color, warm/dry, other (black, fibrous threadlike material protrud ing from the scar on the 12:00 position of the umbilicus) Progress/Results/Core Measures Progress Progress Note : Time: 23:12 Progress Note She appears to have suture material coming from the scar over her umbilicus. Using a suture removal kit were able to elevate make a single snip using the scissors and removed the entire suture. There is no purulence or discharge. The site is not erythematous or cellulitic. Wound care instructions given. Departure Impression Primary Impression: Superficial foreign body abdominal wall no major open wnd or infection Qualified Codes: S30.851A - Superficial foreign body of abdominal wall, initial encounter Disposition: 01 HOME, SELF-CARE Condition: Improved Departure-Patient Inst. Decision time for Depature: 23:13 Referrals: [facility] (PCP/Family) Primary Care Physician LESLI BAUMAN DO Patient Instructions: Wound Care (DC) Add. Discharge Instructions: Keep the wound clean with regular soap and water, body wash or shampoo. Dry the skin around the umbilicus very well. Start to have purulent discharge or increasing redness swelling and pain around the site and you may have developed an infection and need to see a doctor about appropriate management. All discharge instructions reviewed with patient and/or family. Voiced understanding. JUAN DIEGO AGUIRRE Feb 21, 2019 23:14
[2019-02-21 23:16] VITALS: BP 157/88
== END 2019-02-21 23:17 | disposition home or self-care (01) ==
LOC: EDUNIT# 22:59 → ER 23:01
DX: S30.851A Superficial foreign body of abdominal wall, initial encounter (principal); F17.210 Nicotine dependence, cigarettes, uncomplicated; Z98.890 Other specified postprocedural states; Z88.5 Allergy status to narcotic agent; Z82.49 Family history of ischemic heart disease and other diseases of the circulatory system; X58.XXXA Exposure to other specified factors, initial encounter
CPT/HCPCS: 99282

== ENCOUNTER 2019-04-01 05:38 | Outpatient (CLI) | payer MEDICAID ==
[~2019-04-01] VITALS: Ht 180.3 cm; Wt 109.1 kg
[2019-04-01] MEDS ORDERED: bcp TD (10:09)
== END 2019-04-01 10:24 | disposition home or self-care (01) ==
LOC: PREOP 05:38
PROVIDERS: ATTEND Surgery
DX: Z01.818 Encounter for other preprocedural examination (principal)

== ENCOUNTER 2020-04-27 11:18 | Emergency (ER) | payer MEDICAID ==
[~2020-04-27] VITALS: Ht 180.3 cm; Wt 108.8 kg
[~2020-04-27 11:18] MED LIST changes: +bcp TD
--- NOTE | 2020-04-27 11:29 | ED GI ---
General Stated Complaint: N/V,DIARRHEA History of Present Illness Date Seen by Provider: Apr 27, 2020 Time Seen by Provider: 11:28 Initial Comments 20-year-old female presents with nausea, vomiting diarrhea and mid abdominal pain. Patient reports that she started having some abdominal pain and cramping 3 days ago it was in the upper abdomen now little bit in the mid periumbilical area. That she has had some nausea, vomiting and diarrhea associated with it. She reports that her child had similar symptoms last week but her seems to be a little bit worse. No reports of cough, headache, no fevers or chills. No pain in the right lower quadrant. Patient reports she is having difficulty keeping anything down at this time. Patient reports that she has had her gallbladder previously taken out. Allergies and Home Medications Allergies Coded Allergies: morphine (Unverified Allergy, Intermediate, HIVES, 12/04/16) PT RECEIVED 5MG MORPHINE FOR PAIN AND DEVELOPED HIVES ABOVE IV SITE. tramadol (Verified Allergy, Unknown, Vomiting, 04/01/19) Home Medications [bcp] , 1 PATCH TD WEEK, (Reported) Patient Home Medication List Home Medication List Reviewed: Yes Review of Systems Review of Systems Constitutional: No chills, No fever Respiratory: Denies Cough, Denies Shortness of Air Cardiovascular: Denies Chest Pain, Denies Lightheadedness Gastrointestinal: Abdominal Pain, Diarrhea, Nausea, Vomiting Genitourinary: No Symptoms Reported Musculoskeletal: no symptoms reported Skin: no symptoms reported Psychiatric/Neurological: No Symptoms Reported Endocrine: No Symptoms Reported Past Gsdyiud-Nbhswm-Grehra Hx Past Med/Social Hx: Reviewed Nursing Past Med/Soc Hx Patient Social History Type Used: Cigarettes Recent Hopitalizations: No Immunizations Up To Date Tetanus Booster (TDap): Less than 5yrs PED Vaccines UTD: Yes Date of Influenza Vaccine: Nov 16, 2018 Seasonal Allergies Seasonal Allergies: No Past Medical History Surgeries: Yes (cosmetic ear sx, hernia) Abdominal, Gallbladder Respiratory: No Currently Using CPAP: No Currently Using BIPAP: No Cardiac: No ( ) Neurological: No Reproductive Disorders: No Female Reproductive Disorders: Denies Sexually Transmitted Disease: No HIV/AIDS: No Genitourinary: No Gastrointestinal: No Musculoskeletal: No Endocrine: No HEENT: No Loss of Vision: Denies Hearing Impairment: Denies Cancer: No Psychosocial: No Integumentary: Yes (KELOID RT EAR, NASAL SWAB MRSA+) Eczema Blood Disorders: No Adverse Reaction/Blood Tranf: No (N/A) Family Medical History Hypertension 19 MOTHER Physical Exam Vital Signs Vital Signs - First Documented 04/27/20 11:24 Temp 36.2 Pulse 96 Resp 20 B/P (MAP) 126/104 (111) Pulse Ox 98 O2 Delivery Room Air Capillary Refill : Height/Weight/BMI Height: 5'9.00" Weight: 281lbs. 4.0oz. 127.566110bg; 33.56 BMI Method:Stated General Appearance: WD/WN, no apparent distress Neck: full range of motion, supple Respiratory: lungs clear, normal breath sounds Cardiovascular: normal peripheral pulses, regular rate, rhythm Gastrointestinal: non tender (Exam does not elicit any signs of tenderness), soft; No guarding, No rebound Extremities: normal range of motion, non-tender Back: normal inspection Neurologic/Psychiatric: alert, normal mood/affect, oriented x 3 Skin: tattoos/piercings Progress/Results/Core Measures Results/Orders Lab Results Laboratory Tests Test 04/27/20 11:28 04/27/20 11:38 Range/Units Urine Color YELLOW Urine Clarity SL CLOUDY Urine pH 6.0 5-9 Urine Specific [place] >=1.030 1.016-1.022 Urine Protein 2+ H NEGATIVE Urine Glucose (UA) NEGATIVE NEGATIVE Urine Ketones TRACE H NEGATIVE Urine Nitrite NEGATIVE NEGATIVE Urine Bilirubin 1+ H NEGATIVE Urine Urobilinogen 1.0 < = 1.0 MG/DL Urine Leukocyte Esterase TRACE H NEGATIVE Urine RBC (Auto) NEGATIVE NEGATIVE Urine RBC NONE /HPF Urine WBC 50-100 H /HPF Urine Squamous Epithelial Cells 25-50 H /HPF Urine Crystals NONE /LPF Urine Bacteria FEW H /HPF Urine Casts PRESENT /LPF Urine Granular Casts RARE /LPF Urine Mucus MODERATE H /LPF Urine Culture Indicated YES Urine Test NEGATIVE NEGATIVE White Blood Count 10.2 4.3-11.0 10^3/uL Red Blood Count 5.24 H 3.80-5.11 10^6/uL Hemoglobin 15.5 11.5-16.0 g/dL Hematocrit 45 35-52 % Mean Corpuscular Volume 86 80-99 fL Mean Corpuscular Hemoglobin 30 25-34 pg Mean Corpuscular Hemoglobin Concent 34 32-36 g/dL Red Cell Distribution Width 13.3 10.0-14.5 % Platelet Count 235 130-400 10^3/uL Mean Platelet Volume 12.4 H 9.0-12.2 fL Immature Granulocyte % (Auto) 0 % Neutrophils (%) (Auto) 85 H 42-75 % Lymphocytes (%) (Auto) 6 L 12-44 % Monocytes (%) (Auto) 8 0-12 % Eosinophils (%) (Auto) 1 0-10 % Basophils (%) (Auto) 0 0-10 % Neutrophils # (Auto) 8.7 H 1.8-7.8 10^3/uL Lymphocytes # (Auto) 0.6 L 1.0-4.0 10^3/uL Monocytes # (Auto) 0.8 0.0-1.0 10^3/uL Eosinophils # (Auto) 0.1 0.0-0.3 10^3/uL Basophils # (Auto) 0.0 0.0-0.1 10^3/uL Immature Granulocyte # (Auto) 0.0 0.0-0.1 10^3/uL Neutrophils % (Manual) 85 % Lymphocytes % (Manual) 5 % Monocytes % (Manual) 9 % Eosinophils % (Manual) 1 % Blood Morphology Comment NORMAL Sodium Level 133 L 135-145 MMOL/L Potassium Level 3.1 L 3.6-5.0 MMOL/L Chloride Level 103 98-107 MMOL/L Carbon Dioxide Level 17 L 21-32 MMOL/L Anion Gap 13 5-14 MMOL/L Blood Urea Nitrogen 12 7-18 MG/DL Creatinine 0.99 0.60-1.30 MG/DL Estimat Glomerular Filtration Rate > 60 BUN/Creatinine Ratio 12 Glucose Level 132 H 70-105 MG/DL Calcium Level 9.5 8.5-10.1 MG/DL Corrected Calcium 9.2 8.5-10.1 MG/DL Total Bilirubin 0.8 0.1-1.0 MG/DL Aspartate Amino Transf (AST/SGOT) 41 H 5-34 U/L Alanine Aminotransferase (ALT/SGPT) 41 0-55 U/L Alkaline Phosphatase 83 40-136 U/L Total Protein 8.7 H 6.4-8.2 GM/DL Albumin 4.4 3.2-4.5 GM/DL Lipase 12 8-78 U/L Micro Results Microbiology 04/27/20 Influenza Types A,B Antigen (ERLINDA) - Final, Complete My Orders Orders - ALECIA ELLIS DO Ondansetron Injection (Zofran Injectio (04/27/20 11:45) Lactated Ringers (Lr 1000 Ml Iv Solution (04/27/20 11:32) Famotidine Injection (Pepcid Injection) (04/27/20 11:32) Ed Iv/Invasive Line Start (04/27/20 11:32) Abdomen, Flat & Upright/Decub (04/27/20 11:32) Cbc With Automated Diff (04/27/20 11:32) Comprehensive Metabolic Panel (04/27/20 11:32) Hcg,Qualitative Urine (04/27/20 11:32) Lipase (04/27/20 11:32) Ua Culture If Indicated (04/27/20 11:32) Influenza A And B Antigens (04/27/20 11:34) Manual Differential (04/27/20 11:38) Ketorolac Injection (Toradol Injection) (04/27/20 11:56) Urine Culture (04/27/20 11:28) Medications Given in ED Current Medications Medications Dose Ordered Sig/Nj Route Start Time Stop Time Status Last Admin Dose Admin Ondansetron HCl 4 mg ONCE ONCE IVP 04/27/20 11:45 04/27/20 11:46 DC 04/27/20 11:45 4 MG Vital Signs/I&O 04/27/20 11:24 Temp 36.2 Pulse 96 Resp 20 B/P (MAP) 126/104 (111) Pulse Ox 98 O2 Delivery Room Air Progress Progress Note : Time: 12:46 Progress Note Patient with no further episodes of vomiting while here in the ER. Labs show that she is mildly dehydrated. X-rays do not show any acute process. Patient will be discharged home with some Zofran. Recommended bland or liquid diet for 24 to 48 hours and advance as tolerated. She should return to the ER as needed Departure Impression Primary Impression: Viral gastroenteritis Disposition: 01 HOME, SELF-CARE Condition: Stable Departure-Patient Inst. Referrals: [facility] (PCP/Family) Primary Care Physician Patient Instructions: Viral Gastroenteritis Scripts Ondansetron (Ondansetron Odt) 4 Mg Tab.rapdis 4 MG PO Q6H PRN for NAUSEA/VOMITING, #20 TAB 0 Refills Prov: ALECIA ELLIS DO 04/27/20 ALECIA ELLIS DO Apr 27, 2020 11:29
[2020-04-27] MEDS ORDERED: LACTATED RINGERS 1,000 ML IV STA (11:32)
[2020-04-27] MEDS ORDERED: FAMOTIDINE 20MG/2ML IV (PEPCID) IV STA (11:32)
[2020-04-27 11:39] LABS: CLARITY,URINE SL CLOUDY; COLOR,URINE YELLOW; GLUCOSE, URINE (UA) NEGATIVE (NEGATIVE); KETONES,URINE TRACE (NEGATIVE); LEUKOCYTE ESTERASE ,URINE TRACE (NEGATIVE); NITRITE,URINE NEGATIVE (NEGATIVE); PROTEIN,URINE 2+ (NEGATIVE)
[2020-04-27 11:45] LABS: BASOPHILS % (AUTO) 0 % (0-10); EOSINOPHILS # (AUTO) 0.1 10^3/uL (0.0-0.3); EOSINOPHILS % (AUTO) 1 % (0-10); HEMATOCRIT 45 % (35-52); HEMOGLOBIN 15.5 g/dL (11.5-16.0); LYMPHOCYTES # (AUTO) 0.6 10^3/uL (1.0-4.0); LYMPHOCYTES % (AUTO) 6 % (12-44); MEAN CORPUSCULAR HEMOGLOBIN 30 pg (25-34); MEAN CORPUSCULAR HGB CONC 34 g/dL (32-36); MEAN CORPUSCULAR VOLUME 86 fL (80-99); MEAN PLATELET VOLUME 12.4 fL (9.0-12.2); MONOCYTES # (AUTO) 0.8 10^3/uL (0.0-1.0); MONOCYTES % (AUTO) 8 % (0-12); NEUTROPHILS # (AUTO) 8.7 10^3/uL (1.8-7.8); NEUTROPHILS % (AUTO) 85 % (42-75); PLATELET COUNT 235 10^3/uL (130-400); WHITE BLOOD COUNT 10.2 10^3/uL (4.3-11.0)
[2020-04-27] MEDS ORDERED: ONDANSETRON 4 MG/2 ML (SDV) Z0FRAN IVP ONE (11:45)
[2020-04-27 11:55] LABS: ALBUMIN 4.4 GM/DL (3.2-4.5); CHLORIDE 103 MMOL/L (98-107); POTASSIUM 3.1 MMOL/L (3.6-5.0); SODIUM 133 MMOL/L (135-145)
[2020-04-27] MEDS ORDERED: KETOROLAC 30 MG/ML VIAL IVP STA (11:56)
[2020-04-27 11:57] LABS: CALCIUM 9.5 MG/DL (8.5-10.1)
[2020-04-27 11:58] LABS: GLUCOSE 132 MG/DL (70-105); TOTAL PROTEIN 8.7 GM/DL (6.4-8.2)
[2020-04-27 11:58] LABS: BILIRUBIN,URINE 1+ (NEGATIVE)
[2020-04-27 11:59] LABS: BACTERIA,URINE FEW /HPF; GRANULAR CASTS,URINE RARE /LPF; SQUAMOUS EPITHELIAL CELL,UR 25-50 /HPF; WBC,URINE 50-100 /HPF
[2020-04-27 11:59] LABS: BILIRUBIN,TOTAL 0.8 MG/DL (0.1-1.0); CARBON DIOXIDE 17 MMOL/L (21-32)
[2020-04-27 12:01] LABS: ALKALINE PHOSPHATASE 83 U/L (40-136); CREATININE SERUM 0.99 MG/DL (0.60-1.30); GFR ESTIMATED > 60
[2020-04-27 12:02] LABS: BUN/CREATININE RATIO 12
[2020-04-27 12:04] LABS: ALANINE AMINOTRANSFERASE 41 U/L (0-55)
[2020-04-27 12:05] LABS: LIPASE 12 U/L (8-78)
[2020-04-27 12:40] LABS: EOSINOPHILS % (MANUAL) 1 %; LYMPHOCYTES % (MANUAL) 5 %; MONOCYTES % (MANUAL) 9 %; NEUTROPHILS % (MANUAL) 85 %
[2020-04-27 12:41] LABS: RBC MORPH NORMAL
--- NOTE | 2020-04-27 12:45 | Diagnostic Imaging Report ---
INDICATION: Nausea, vomiting, diarrhea with abdominal pain. TIME OF EXAM: 12:30 p.m. FINDINGS: Upright and supine views of the abdomen show no free air. Bowel gas pattern is nonobstructed. There are surgical clips in the gallbladder fossa. No pathologic calcifications are seen. IMPRESSION: No acute abnormality is detected. Dictated by: Dictated on workstation # [id number]
[2020-04-27] MEDS ORDERED: ONDA4TAB11 PO (12:47)
[2020-04-27 12:55] VITALS: BP 139/88
== END 2020-04-27 12:55 | disposition home or self-care (01) ==
LOC: EDUNIT# 11:18 → ER 11:20
DX: A08.4 Viral intestinal infection, unspecified (principal); Z88.5 Allergy status to narcotic agent
CPT/HCPCS: 36415; 74019; 80053; 81000; 83690; 84703; 85007; 85027; 87088; 87804